=== PATIENT | male | born 1985 | race Caucasian/White ===

== ENCOUNTER 2018-02-12 06:39 | Inpatient (IN) | payer OTHER ==
[2018-02-12] VITALS (7 sets, daily range): BP systolic 110–173; BP diastolic 68–89
[~2018-02-12] VITALS: Ht 172.7 cm; Wt 64.0 kg
--- NOTE | ~2018-02-12 | HC ---
[facility] [place] [address] CONSULTATION Name: SWAPNA FOSTER Room #: 216-P [facility] IN M.R.#: [id number] Admission: 02/12/18 Attend Phys: Miguel A Day Discharge: Date of : 85 Report #: [id number] THIS REPORT FOR: //name// CC: FAM unknown Miguel A Day REASON FOR CONSULTATION: End-stage renal disease. REASON FOR PRESENTATION: Palpitation. HISTORY OF PRESENT ILLNESS: A 32-year-old with extensive past medical history. He is a dialysis patient maintained on hemodialysis every Friday, Friday and Friday. He has been on dialysis for the last 11 years per mother. Kidney biopsy was consistent with malignant hypertension. He had a very complicated course in the last 3 months between [facility], [facility], [facility]. He was supposed to have superficialization of his AV fistula. This was complicated by cardiac arrest, requiring intubation, tracheostomy and he has been on numerous hospitals after that. The tracheostomy has closed. He is now in [facility], continuing with his rehabilitation efforts. His cardiac arrest was presumed to be due to pulmonary hypertension and prolonged QT per the mother. She is not really sure about the details of the cardiac history there. He had suffered from anoxic brain injury. He seems to be recovering well from those incidents and events. He had dialysis yesterday. This morning, he woke up not feeling well and feeling nauseated. He was found to be in AFib and RVR. He was admitted for further evaluation and management. I am being asked to manage his end-stage renal disease issues. PAST MEDICAL HISTORY: 1. End-stage renal disease. 2. Hypertension. 3. Status post cardiac arrest. 4. Seizure disorder. 5. Stroke. 6. Anoxic brain injury. 7. Hyperlipidemia. 8. Status post tracheostomy. 9. Status post lung biopsy. 10. Multiple AV fistulas and dialysis catheters. 11. Atrial fibrillation. PAST SURGICAL HISTORY: 1. AV fistula. 2. Tracheostomy. 3. Superficialization of left AV fistula. 3. Lung biopsy. FAMILY HISTORY: None. [facility] [address] [place] [address] CONSULTATION Name: SWAPNA FOSTER Room #: 216-P [facility] IN M.R.#: [id number] Admission: 02/12/18 Attend Phys: Miguel A Day Discharge: Date of : 85 Report #: [id number] SOCIAL HISTORY: He denies drug or alcohol abuse. He lives with his family. He has been in 2 different places, including [place], [place]. He now resides in a nursing facility. REVIEW OF SYSTEMS: GENERAL: Significant for weakness. CARDIOVASCULAR: Palpitation. PULMONARY: Shortness of breath. GASTROINTESTINAL: Nausea. GENITOURINARY: No frequency, no urgency. MUSCULOSKELETAL: Occasional back pain. MEDICATIONS: 1. Nitroglycerin: 2. Carvedilol. 3. Keppra. 4. Seroquel. 5. Melatonin. 6. Darbepoetin. 7. Valproic acid. PHYSICAL EXAMINATION: GENERAL: Alert, oriented, in no apparent distress. VITAL SIGNS: Blood pressure is 139/79, pulse rate is 98. HEAD AND NECK: No jugular venous distention, no bruit, no thyromegaly. CHEST: Decreased air entry bilaterally. CARDIOVASCULAR: Regular, with no rub. ABDOMEN: Ascites present. LOWER EXTREMITIES: No edema. UPPER EXTREMITIES: Clotted right AV fistula. Functioning left AV fistula. LABORATORY DATA: Laboratory values reviewed. TSH is mildly elevated, procalcitonin is 0.7. Sodium is 137, potassium is 4.9, BUN is 72, creatinine 7. White blood cell count is 12.2, platelet is 142. Blood cultures are pending. Chest x-ray reviewed. Mild right lower lung infiltrate. ASSESSMENT, IMPRESSION, PLAN: 1. End-stage renal disease. 2. Atrial fibrillation. 3. Recent cardiac arrest with complicated hospital stay. 4. Anoxic brain injury. 5. Hypertension. 6. Hypothyroidism. 7. Seizure disorder. 8. We will continue with the usual dialysis regimen every Friday, Friday and [address] [address] CONSULTATION Name: SWAPNA FOSTER Room #: 216-P [facility] IN M.R.#: [id number] Admission: 02/12/18 Attend Phys: Miguel A Day Discharge: Date of : 85 Report #: [id number] Friday. 9. Cultures are pending. 10. Resume his home medications. 11. Obtain his [facility] medical records for reviewing to review them. 12. Discontinue IV fluid. 13. Atrial fibrillation is being managed by the cardiac team. By: 1021 1459 John Melton MD /nt
--- NOTE | ~2018-02-12 | 2DMMODE ---
[facility] [address] [place] [address] 2 D/M-MODE ECHOCARDIOGRAM Name: SWAPNA FOSTER Room #: 216-P ADM IN M.R.#: [id number] Admission: 02/12/18 Attend Phys: Miguel A Elizabeth Discharge: Date of : 85 Date of Service: 02/12/18 1224 Report #: [id number] THIS REPORT FOR: //name// APPROVED REPORT Study performed: 02/12/2018 11:28:14 EXAM: Comprehensive 2D, Doppler, and color-flow Echocardiogram Patient Location: Bedside Room #: 216 Status: routine BSA: 1.85 HR: 95 bpm BP: 161/84 mmHg Rhythm: Atrial Fibrillation Other Information Study Quality: Good Indications Short of breath, Afib. Hx: cardiac arrest, CVA 2D Dimensions RVDd: 51.68 mm LVEF(%): 46.19 (>50%) IVSd: 13.93 (7-11mm) LVOT Diam: 21.43 (18-24mm) LVDd: 46.18 mm PWd: 13.16 (7-11mm) Ascending Ao: 34.08 (22-36mm) LVDs: 35.56 (25-40mm) Aortic Root: 37.25 mm Lake's LVEF: 46.19 % Volumes Left Atrial Volume (Systole) Single Plane 4CH: 65.64 mL Single Plane 2CH: 71.41 mL LA ESV Index: 41.00 mL/m2 Aortic Valve AoV Peak Mat.: 1.42 m/s AO Peak Gr.: 14.05 mmHg LVOT Max P.34 mmHg LVOT Max V: 0.91 m/s MIKE Vmax: 2.31 cm2 Mitral Valve MV Decel. Time: 145.97 ms MV E Max Mat.: 1.07 m/s [facility] [place] [address] 2 D/M-MODE ECHOCARDIOGRAM Name: SWAPNA FOSTER Room #: 216-P [facility] IN M.R.#: [id number] Admission: 02/12/18 Attend Phys: Miguel A Elizabeth Discharge: Date of : 85 Date of Service: 02/12/18 1224 Report #: [id number] Pulmonary Valve PV Peak Mat.: 1.10 m/s PV Peak Gr.: 5.03 mmHg Tricuspid Valve TR Peak Mat.: 4.30 m/s RAP Estimate: 10.00 mmHg TR Peak Gr.: 73.00 mmHg PA Pressure: 83.00 mmHg Left Ventricle The left ventricle is normal size. There is normal LV segmental wall motion. Mild to moderate concentric left ventricular hypertrophy. Left ventricular systolic function is normal. LVEF is 55%. This study is not technically sufficient to allow evaluation of the LV diastolic function due to atrial fibrillation. Right Ventricle Right ventricle is dilated. Right ventricle is hypertrophied. Right ventricle is mildly hypokinetic. Atria Left atrium is mild to moderately dilated. Right atrium is moderately dilated. Aortic Valve Aortic valve is mildly calcified, trileaflet. No aortic regurgitation is present. There is no aortic valvular stenosis. Mitral Valve The mitral valve is normal in structure. Trace mitral regurgitation. No evidence of mitral valve stenosis. Tricuspid Valve The tricuspid valve is normal in structure. Moderate tricuspid regurgitation. Severe pulmonary hypertension with an estimated PAP of 80 mmHg. Pulmonic Valve The pulmonary valve is normal in structure. Trace pulmonic regurgitation. Great Vessels The aortic root is normal in size. The ascending aorta is normal in size. IVC is dilated and collapses >50% with inspiration. [facility] [address] [place] [address] 2 D/M-MODE ECHOCARDIOGRAM Name: SWAPNA FOSTER Room #: 216-P [facility] IN M.R.#: [id number] Admission: 02/12/18 Attend Phys: Miguel A Elizabeth Discharge: Date of : 85 Date of Service: 02/12/18 1224 Report #: [id number] Pericardium There is no pericardial effusion. <Conclusion> Left ventricular systolic function is normal. Mild to moderate concentric left ventricular hypertrophy. Normal LV segmental wall motion. Right ventricle is dilated. Both atria are moderately dilated. Aortic valve is mildly calcified, trileaflet. No aortic regurgitation or stenosis The mitral valve is normal in structure. Trace mitral regurgitation. Moderate tricuspid regurgitation. Pulmonary artery pressure of 80mmHg There is no pericardial effusion. <ELECTRONICALLY SIGNED> By: Spike Lockwood MD, [facility] 02/12/18 1224 1224 1224 Spike Lockwood MD, FACC /INF
--- NOTE | ~2018-02-12 | EKG ---
[address] [place] [address] ELECTROCARDIOGRAM REPORT Name: SWAPNA FOSTER Room #: 216-P ADM IN M.R.#: [id number] Admission: 02/12/18 Attend Phys: Miguel A Day Discharge: Date of : 85 Report #: [id number] THIS REPORT FOR: //name// [facility] ED Test Date: 2018-02-12 Test Time: 06:43:05 Pat Name: SWAPNA FOSTER Department: Room: Gender: Care Management Specialist: : 1985 Requested By: Jc Maddox Order Number: [id number] MD: Spike Lockwood Measurements Intervals [place] Rate: 150 P: WI: QRS: 40 QRSD: 96 T: -79 QT: 281 QTc: 444 Interpretive Statements Atrial fibrillation RSR' in V1 or V2, probably normal variant Nonspecific repol abnormality, diffuse leads No previous ECG available for comparison Electronically Signed On 02-12-2018 8:46:37 CDT by Spike Lockwood [email or web address] <ELECTRONICALLY SIGNED> By: Spike Lockwood MD, [facility] 02/12/18 [id number] 2 Spike Lockwood MD, FACC /EPI
--- NOTE | ~2018-02-12 | PATH ---
[facility] [address] [address] PATHOLOGY RPT PROCEDURE Name: SWAPNA FOSTER Room #: 211-P [facility] IN M.R.#: [id number] Admission: 02/12/18 Date of : 85 Discharge: 02/18/18 Report #: [id number] Path Case #: [id number] Note [facility] Accession Number: [id number] TESTS RESULT FLAG UNITS REF RANGE LAB Clinician Provided Cytology Information No. of containers..01 Other (Miscellaneous) Source: 01 ABDOMINAL FLUID DIAGNOSIS: 02 ABDOMINAL FLUID NEGATIVE FOR MALIGNANT CELLS. REACTIVE MESOTHELIAL CELLS ARE PRESENT. MODERATE ACUTE AND CHRONIC INFLAMMATION. Signed out by: 02 Mis Rushing MD, Pathologist NPI- [id number] Performed by: 03 Grisel Salazar, Gas Transfer Operator ([facility]) Gross description: 01 20 ML, DARK YELLOW, CLOUDY /LCS FLAG LEGEND: L-Low Normal,H-High Normal,LL-Alert Low,HH-Alert High <-Panic Low,>-Panic High,A-Abnormal,AA-Critical Abnormal Performed at: [address] [place] [address] Scout Stuart MD, [address] [address] Mis Rushing MD, [address] [address] Yonathan Kelsey MD, Performed at: [address] [id number] MD Scout Stuart MD Phone: [phone]
[2018-02-12 06:54] LABS: HEMATOCRIT 26.3 % (42.0-52.0); HEMOGLOBIN 8.5 gm/dL (14.0-18.0); MCH 32.3 pg (26.0-34.0); MCHC 32.3 g/dL (28.0-37.0); MCV 99.9 fL (80.0-100.0); PLATELET COUNT 142 thou/uL (150-400); RBC 2.64 mil/uL (4.50-6.00); RDW 22.9 % (10.5-14.5); WBC 12.5 thou/uL (4.0-11.0)
[2018-02-12 07:07] LABS: ANION GAP 12 mmol/L (7-16); BUN 72 mg/dL (7-18); CHLORIDE 98 mmol/L (98-107); CO2 27 mmol/L (21-32); GLUCOSE 104 mg/dL (74-106); POTASSIUM 4.9 mmol/L (3.5-5.1); SODIUM 137 mmol/L (136-145)
[2018-02-12] MEDS ORDERED: VALPROIC A500 MG/10 PO ×2 (07:12→07:26)
[2018-02-12] MEDS ORDERED: TYLENOL325 MG PO (07:13)
[2018-02-12] MEDS ORDERED: NITROGLYCERIN0.4 MG SUBLING (07:14)
[2018-02-12 07:17] LABS: TROPONIN-I < 0.04 ng/mL (<0.06)
[2018-02-12] MEDS ORDERED: COREG6.25 MG PO (07:17)
[2018-02-12] MEDS ORDERED: SENNA PLUS TAB1 EACH PO (07:17)
[2018-02-12] MEDS ORDERED: NORVASC5 MG PO (07:17)
[2018-02-12] MEDS ORDERED: VITAMIN D1000 UNI1 PO (07:18)
[2018-02-12] MEDS ORDERED: ARANESP 6060 MCG/0.3 SUBQ (07:19)
[2018-02-12] MEDS ORDERED: BENADRYL25 MG PO (07:20)
[2018-02-12] MEDS ORDERED: IRON325 PO (07:20)
[2018-02-12] MEDS ORDERED: KEPPRA 500 MG500 M1 PO (07:21)
[2018-02-12] MEDS ORDERED: MELATONIN3 MG PO (07:21)
[2018-02-12] MEDS ORDERED: PROTONIX40 M1 PO (07:22)
[2018-02-12] MEDS ORDERED: NEPHRO-VITE RX1 TA1 PO (07:22)
[2018-02-12] MEDS ORDERED: ONDANSETRON HCL4 M2 PO (07:22)
[2018-02-12] MEDS ORDERED: SEROQUEL 25 MG25 M1 PO ×2 (07:23→07:25)
[2018-02-12] MEDS ORDERED: COLACE100 MG PO (07:27)
[2018-02-12] MEDS ORDERED: CEFEPIME 11 GM/50 ML IV (07:27)
[2018-02-12] MEDS ORDERED: MINTOX PLUS TA1 EACH PO (07:28)
[2018-02-12 07:30] LABS: ABSOLUTE NEUTROPHILS 9.5 thou/uL (1.4-8.2); ANISOCYTOSIS 1+
[2018-02-12 09:58] LABS: INR 1.1; PROTIME 11.4 Seconds (9.3-11.4)
[2018-02-13 00:20] VITALS: BP 114/80
[2018-02-13 04:15] LABS: INR 1.2; PROTIME 12.1 Seconds (9.3-11.4)
[2018-02-13 04:52] VITALS: BP 149/102
[2018-02-13 11:35] VITALS: BP 127/86
[2018-02-13 16:21] VITALS: BP 129/91
[2018-02-13 19:22] VITALS: BP 131/91
[2018-02-14 04:54] LABS: INR 1.2; PROTIME 12.4 Seconds (9.3-11.4)
[2018-02-14 05:41] VITALS: BP 119/78
[2018-02-14 08:00] VITALS: BP 142/108
[2018-02-14 12:00] VITALS: BP 151/103
[2018-02-14 16:00] VITALS: BP 133/96
[2018-02-14 20:04] VITALS: BP 111/84
[2018-02-15 05:10] VITALS: BP 124/77
[2018-02-15 06:27] LABS: HEMOGLOBIN 6.8 gm/dL (14.0-18.0); MCH 33.5 pg (26.0-34.0); WBC 9.4 thou/uL (4.0-11.0)
[2018-02-15 06:28] LABS: HEMATOCRIT 20.2 % (42.0-52.0); MCHC 33.9 g/dL (28.0-37.0); MCV 98.8 fL (80.0-100.0); RBC 2.05 mil/uL (4.50-6.00)
[2018-02-15 06:37] LABS: INR 1.7; PROTIME 17.1 Seconds (9.3-11.4)
[2018-02-15 08:00] VITALS: BP 117/83
[2018-02-15 11:50] VITALS: BP 130/83
[2018-02-15 12:28] VITALS: BP 143/105
[2018-02-15 16:30] VITALS: BP 126/91
[2018-02-15 20:57] VITALS: BP 127/82
[2018-02-16 03:51] LABS: HEMATOCRIT 22.1 % (42.0-52.0); HEMOGLOBIN 7.5 gm/dL (14.0-18.0); MCH 33.3 pg (26.0-34.0); RBC 2.25 mil/uL (4.50-6.00); RDW 20.7 % (10.5-14.5); WBC 6.7 thou/uL (4.0-11.0)
[2018-02-16 03:55] LABS: INR 2.5; PROTIME 25.4 Seconds (9.3-11.4)
[2018-02-16 03:59] LABS: ALBUMIN 1.7 g/dL (3.4-5.0); CALCIUM 9.4 mg/dL (8.5-10.1); CREATININE 8.5 mg/dL (0.7-1.3); POTASSIUM 5.5 mmol/L (3.5-5.1); TOTAL BILIRUBIN 0.3 mg/dL (<0.1-1.0); TOTAL PROTEIN 6.9 g/dL (6.4-8.2)
[2018-02-16 04:44] VITALS: BP 119/84
[2018-02-16 07:10] VITALS: BP 133/95
[2018-02-16 11:05] VITALS: BP 148/63
[2018-02-16 15:43] VITALS: BP 155/93
[2018-02-16 19:19] VITALS: BP 149/110
[2018-02-17 03:34] VITALS: BP 143/97
[2018-02-17 04:42] LABS: INR 3.3
[2018-02-17 04:57] LABS: ALBUMIN 1.8 g/dL (3.4-5.0); PHOSPHORUS 4.1 mg/dL (2.5-4.9); POTASSIUM 5.3 mmol/L (3.5-5.1)
[2018-02-17 08:43] VITALS: BP 125/88
[2018-02-17] MEDS ORDERED: MEROPENEM 1 GM V1 GM IVPB (08:48)
[2018-02-17] MEDS ORDERED: COUMADIN 5 MG TA5 M1 PO (08:49)
[2018-02-17 11:11] LABS: SOURCE ABDOMINAL FLUID; TOTAL VOLUME 60 mL
[2018-02-17 11:12] LABS: CLARITY CLOUDY; COLOR YELLOW
[2018-02-17 11:30] LABS: BF NUCLEATED CELLS 617; BF RBC 3169
[2018-02-17 14:10] LABS: BF NEUTROPHILS 11
[2018-02-17 14:11] LABS: BF MACROPHAGE 62
[2018-02-17 16:23] VITALS: BP 134/100
[2018-02-17 19:50] VITALS: BP 103/76
[2018-02-18 03:58] LABS: ALBUMIN 1.8 g/dL (3.4-5.0); CALCIUM 8.9 mg/dL (8.5-10.1); PHOSPHORUS 5.8 mg/dL (2.5-4.9)
[2018-02-18 04:04] LABS: CREATININE 7.6 mg/dL (0.7-1.3)
[2018-02-18 05:28] VITALS: BP 144/76
[2018-02-18 06:16] LABS: INR 3.8; PROTIME 36.5 Seconds (9.3-11.4)
[2018-02-18 07:23] VITALS: BP 148/85
[2018-02-18 11:11] LABS: BODY FLUID ALBUMIN 2.1 g/dL (()); BODY FLUID PROTEIN 4.9 g/dL (())
[2018-02-18 11:49] VITALS: BP 126/92
== END 2018-02-18 13:58 | DRG 177 ==
LOC: ER 06:39 → EROBS 07:26 → 2N 07:26
PROVIDERS: Emergency Medicine; Hospitalist; Internal Medicine Nephrology; Nurse Practitioner Adult Health
PROC: 0W9G3ZZ Drainage of Peritoneal Cavity, Percutaneous Approach (ICD-10-PCS; principal; 2018-02-17)
DX: J69.0 Pneumonitis due to inhalation of food and vomit (principal); N18.6 End stage renal disease; I12.0 Hypertensive chronic kidney disease with stage 5 chronic kidney disease or end stage renal disease; G93.1 Anoxic brain damage, not elsewhere classified; R18.8 Other ascites; D62 Acute posthemorrhagic anemia; G40.909 Epilepsy, unspecified, not intractable, without status epilepticus; D64.9 Anemia, unspecified; D69.6 Thrombocytopenia, unspecified; I27.20 Pulmonary hypertension, unspecified; E87.5 Hyperkalemia; B96.20 Unspecified Escherichia coli [E. coli] as the cause of diseases classified elsewhere; E83.39 Other disorders of phosphorus metabolism; E03.9 Hypothyroidism, unspecified; E78.5 Hyperlipidemia, unspecified; I48.91 Unspecified atrial fibrillation; I25.2 Old myocardial infarction; Z86.74 Personal history of sudden cardiac arrest; Z86.14 Personal history of Methicillin resistant Staphylococcus aureus infection; Z86.73 Personal history of transient ischemic attack (TIA), and cerebral infarction without residual deficits; Z93.0 Tracheostomy status; Z99.2 Dependence on renal dialysis; Z79.899 Other long term (current) drug therapy; Z88.1 Allergy status to other antibiotic agents; Z91.048 Other nonmedicinal substance allergy status
CPT/HCPCS: 10081; 32100

== ENCOUNTER → 2020-03-14 | Outpatient (CLI) | payer OTHER ==
[~2020-03-14] MED LIST: ARANESP 6060 MCG/0.3 SUBQ; BENADRYL25 MG PO; CEFEPIME 11 GM/50 ML IV; COLACE100 MG PO; COREG6.25 MG PO; COUMADIN 5 MG TA5 M1 PO; IRON325 PO; KEPPRA 500 MG500 M1 PO; MELATONIN3 MG PO; MEROPENEM 1 GM V1 GM IVPB; MINTOX PLUS TA1 EACH PO; NEPHRO-VITE RX1 TA1 PO; NITROGLYCERIN0.4 MG SUBLING; NORVASC5 MG PO; ONDANSETRON HCL4 M2 PO; PROTONIX40 M1 PO; SENNA PLUS TAB1 EACH PO; SEROQUEL 25 MG25 M1 PO; TYLENOL325 MG PO; VALPROIC A500 MG/10 PO; VITAMIN D1000 UNI1 PO
== END ==
LOC: SJCVC 13:56
PROVIDERS: ATTEND Internal Medicine Cardiovascular Disease
DX: R94.31 Abnormal electrocardiogram [ECG] [EKG] (principal); I44.5 Left posterior fascicular block; I48.0 Paroxysmal atrial fibrillation; I12.0 Hypertensive chronic kidney disease with stage 5 chronic kidney disease or end stage renal disease; N18.6 End stage renal disease; Z99.2 Dependence on renal dialysis; G93.1 Anoxic brain damage, not elsewhere classified; Z79.899 Other long term (current) drug therapy; Z87.891 Personal history of nicotine dependence; Z86.74 Personal history of sudden cardiac arrest

== ENCOUNTER → 2020-04-06 | Outpatient (CLI) | payer OTHER | LOC: SJCVCIMAG 07:52 | PROVIDERS: ATTEND Internal Medicine Cardiovascular Disease | DX: I48.0 Paroxysmal atrial fibrillation (principal); I49.3 Ventricular premature depolarization; I12.9 Hypertensive chronic kidney disease with stage 1 through stage 4 chronic kidney disease, or unspecified chronic kidney disease; N18.9 Chronic kidney disease, unspecified; Z79.899 Other long term (current) drug therapy; Z86.74 Personal history of sudden cardiac arrest; Z87.891 Personal history of nicotine dependence ==

== ENCOUNTER → 2020-11-16 | Outpatient (CLI) | payer OTHER | LOC: SJCVCIMAG 10-24 08:22 | PROVIDERS: ATTEND Internal Medicine Cardiovascular Disease | DX: I08.1 Rheumatic disorders of both mitral and tricuspid valves (principal); I27.20 Pulmonary hypertension, unspecified; R94.31 Abnormal electrocardiogram [ECG] [EKG]; I48.91 Unspecified atrial fibrillation; I13.11 Hypertensive heart and chronic kidney disease without heart failure, with stage 5 chronic kidney disease, or end stage renal disease; N18.6 End stage renal disease; G93.1 Anoxic brain damage, not elsewhere classified; Z88.8 Allergy status to other drugs, medicaments and biological substances; Z99.2 Dependence on renal dialysis; Z98.890 Other specified postprocedural states; Z79.899 Other long term (current) drug therapy; Z86.73 Personal history of transient ischemic attack (TIA), and cerebral infarction without residual deficits; Z86.74 Personal history of sudden cardiac arrest; Z87.891 Personal history of nicotine dependence ==